=== PATIENT | male | born 1955 | race Caucasian/White ===

== ENCOUNTER 2020-08-04 09:24 | Day surgery (SDC) | payer OTHER, SELFPAY ==
[2020-08-01 11:00] LABS: BASOPHIL % 1.4 % (0.2-1.5); PLATELET COUNT 263 x10^3mcL (152-348)
[2020-08-01 11:27] LABS: CALCIUM 9.2 mg/dL (8.5-10.1); CARBON DIOXIDE 29.4 mmol/L (21-32); CREATININE SERUM 1.3 mg/dL (0.7-1.3); POTASSIUM SERUM 3.9 mmol/L (3.5-5.1)
[2020-08-01 11:33] LABS: ALBUMIN 4.3 g/dL (3.4-5.0); BILIRUBIN TOTAL 0.37 mg/dL (0.20-1.00); TOTAL PROTEIN, SERUM 8.2 g/dL (6.4-8.2)
[2020-08-01 11:58] LABS: RED CELL DISTRIBUTION WIDTH 15.2 % (12.1-16.2)
[~2020-08-04] VITALS: Ht 162.6 cm; Wt 77.1 kg
[2020-08-04 09:41] VITALS: BP 177/100
[2020-08-04 15:34] VITALS: BP 135/88
== END 2020-08-04 15:30 | disposition home or self-care (01) ==
LOC: DS 09:24 → OR 10:00 → DS 10:30
PROVIDERS: ATTEND Surgery
DX: K40.90 Unilateral inguinal hernia, without obstruction or gangrene, not specified as recurrent (principal); I10 Essential (primary) hypertension; Z79.899 Other long term (current) drug therapy
CPT/HCPCS: 88344; C1781; J0690; J1170; J3010; J3490